=== PATIENT | female | born 1985 | race Caucasian/White ===

== ENCOUNTER 2023-09-29 21:26 | Emergency (ER) | payer BC, SELFPAY ==
[2023-09-29 21:30] VITALS: BP 133/81; PULSE 94; TEMP 36.8; O2SAT 98; BMI 30.6
--- NOTE | 2023-09-29 21:58 | ED_ITS ---
HPI - Dental/Oral General Chief complaint: Dental/Oral Stated complaint: DENTAL/ORAL Time Seen by Provider: 09/29/23 21:56 Source: patient Mode of arrival: walk-in History of Present Illness HPI Narrative: presents complaining of dental pain for couple of days. increasing pain. admits to bad cavities but states she has not had pain in long time. No facial swelling or fever Related Data Allergies Allergy/AdvReac Type Severity Reaction Status Date / Time No Known Drug Allergies Allergy Verified 09/29/23 21:32 Review of Systems ROS Status of ROS 10 or more systems reviewed and unremark able except as noted in history and below Exam Constitutional Vital Signs, click to edit/add: Last Vital Signs Temp 98.2 F 09/29/23 21:30 Pulse 94 H 09/29/23 21:30 Resp 16 09/29/23 21:30 BP 133/81 09/29/23 21:30 Pulse Ox 98 09/29/23 21:30 O2 Del Method Room Air 09/29/23 21:30 Common normals: no apparent distress, average body habitus, oriented x3, no limitations, healthy appearing, alert and well nourished [facility] Common normals: normocephalic and head/scalp atraumatic Other: right upper ant. molar caries and tender Eye Common normals: EOMs intact bilaterally and conjunctivae normal Respiratory Common normals: normal respiratory effort, no retractions, no use of accessory muscles and clear to auscultation bilaterally Cardio Common normals: regular rate, regular rhythm, S1 normal heart sound and S2 normal heart sound Extremity Common normals: normal to inspection and full ROM Neuro Common normals: oriented x3, CN's II-XII intact bilaterally, moves all extremities and no focal motor deficits Psych Appearance: grossly normal Course Vital Signs Vital signs: Vital Signs Temperature 98.2 F 09/29/23 21:30 Pulse Rate 94 H 09/29/23 21:30 Respiratory Rate 16 09/29/23 21:30 Blood Pressure 133/81 09/29/23 21:30 Pulse Oximetry 98 09/29/23 21:30 Oxygen Delivery Method Room Air 09/29/23 21:30 Temperature 98.2 F 09/29/23 21:30 Pulse Rate 94 H 09/29/23 21:30 Respiratory Rate 16 09/29/23 21:30 Blood Pressure 133/81 09/29/23 21:30 Pulse Oximetry 98 09/29/23 21:30 Oxygen Delivery Method Room Air 09/29/23 21:30 MDM - Dental/Oral MDM Narrative Medical decision making narrative: presents in stable condition with dental caries and early abscess. given dose of amoxicillin and motrin in the department. Discharged home with a prescription for Amoxicillin and advised to follow up with her doctor Discharge Plan Discharge Stand Alone Forms: Portal Instructions Chief Complaint: Dental/Oral Clinical Impression: Dental abscess Patient Disposition: Home, Self-Care Print Language: Sinhala Instructions: Dental Abscess (ED) Additional Instructions: follow up with your dentist next week Referrals: Physician,Non-Staff, MD [Primary Care Provider] - 1 week
[2023-09-29] MEDS: AMOXICILLIN 500 MG CAPSULE 1000 MG PO (22:15)
[2023-09-29] MEDS: IBUPROFEN 400 MG TABLET 800 MG PO (22:15)
== END 2023-09-29 22:28 | disposition home or self-care (01) ==
PROVIDERS: Emergency Provider Internal Medicine
DX: K04.7 Periapical abscess without sinus (principal)
CPT/HCPCS: 99283

== ENCOUNTER 2024-09-17 20:35 | Emergency (ER) | payer MEDICAID, SELFPAY ==
[2024-09-17 20:40] VITALS: BP 116/78; PULSE 109; TEMP 36.7; O2SAT 99; BMI 31.6
--- NOTE | 2024-09-17 20:52 | ED_ITS ---
HPI HPI - General Adult General Stated complaint: Blood Draw HCG 3 weeks Time Seen by Provider: 09/17/24 20:40 Source: patient Mode of arrival: walk-in History of Present Illness HPI narrative: The patient is a 39-year-old female who presents to the emergency department today requesting an hCG quantitative drawn. Her LMP was 08/23/24 () and mentions that she just left [facility] in [place] having an OB ultrasound due to reported cramping and pink-tinged spotting she had on 09/14- 09/15. On arrival to the ER today she has no complaints including abdominal pain, vaginal bleeding/spotting, or vaginal discharge patient has any urinary symptoms or back/flank pain. She reports she solely wants a quantitative lab drawn. She is establishing care with an HOSPICE ADMINISTRATOR in [place] out of [facility]. Related Data Allergies Allergy/AdvReac Type Severity Reaction Status Date / Time No Known Drug Allergies Allergy Verified 09/17/24 20:48 Opioid HPI Opioid Management Most Recent Opioid Data: Last Pain Scale 5 09/29/23, 22:15 Review of Systems ROS Status of ROS 10 or more systems reviewed and unremark able except as noted in history and below Exam Narrative Exam Narrative: Constituational: Awake/ alert, no apparent distress, well hydrated HENMT: normocephalic, external ears normal, moist oral mucous membranes and oropharynx normal Eyes: EOMI and conjunctivae normal Neck: ROM intact Chest: inspection of chest normal Respiratory: Normal respiratory effort MSK: ROM intact Skin: no rashes or petechiae Neuro: no focal deficits Psych: + Mildly anxious and restless, otherwise mental status grossly normal Constitutional Vital Signs, click to edit/add: Last Vital Signs Temp 98.1 F 09/17/24 20:40 Pulse 109 H 09/17/24 20:40 Resp 20 09/17/24 20:40 BP 116/78 09/17/24 20:40 Pulse Ox 99 09/17/24 20:40 O2 Del Method Room Air 09/17/24 20:40 Course Vital Signs Vital signs: Vital Signs Temperature 98.1 F 09/17/24 20:40 Pulse Rate 109 H 09/17/24 20:40 Respiratory Rate 20 09/17/24 20:40 Blood Pressure 116/78 09/17/24 20:40 Pulse Oximetry 99 09/17/24 20:40 Oxygen Delivery Method Room Air 09/17/24 20:40 Temperature 98.1 F 09/17/24 20:40 Pulse Rate 109 H 09/17/24 20:40 Respiratory Rate 20 09/17/24 20:40 Blood Pressure 116/78 09/17/24 20:40 Pulse Oximetry 99 09/17/24 20:40 Oxygen Delivery Method Room Air 09/17/24 20:40 Medical Decision Making MDM Narrative Medical decision making narrative: The patient is a well-appearing 39-year-old female who presented to the emergency department today from [facility] in [place] after having an OB ultrasound due to reported light cramping and spotting that ended 2 days prior requesting solely an hCG quantitative lab draw today that she stated she would personally just like to have done. Patient denied any concerns tonight related to pain/or vaginal discharge/bleeding. She reports she is establishing care with an HOSPICE ADMINISTRATOR out of [facility] for this but did not state a date for follow-up. With nursing staff present at the bedside while attempting to obtain a history from the patient and clarifying the course of the patient's concerns that led to her having an OB ultrasound today and hCG quantitative earlier in the week she became upset and subsequently left the exam room and stated she would have back to [facility] while then exiting the emergency room. Medical Records Medical records reviewed: Yes I reviewed the patient's medical records Discharge Plan Discharge Stand Alone Forms: Portal Instructions Clinical Impression: Patient Disposition: Left Against Medical Advice Condition: Good Print Language: Turkmen Instructions: (ED) Referrals: Physician,Non-Staff, MD [Primary Care Provider] - 1 week
== END 2024-09-17 20:50 | disposition left against medical advice (07) ==
PROVIDERS: Emergency Provider Emergency Medicine
DX: Z34.91 Encounter for supervision of normal pregnancy, unspecified, first trimester (principal); Z53.29 Procedure and treatment not carried out because of patient's decision for other reasons
CPT/HCPCS: 99281